=== PATIENT | male | born 1970 | race Caucasian/White ===

== ENCOUNTER 2016-08-25 13:04 | Emergency (ER) | payer SELFPAY ==
[~2016-08-25] VITALS: Ht 177.8 cm; Wt 76.0 kg
[2016-08-25 13:06] VITALS: BP 109/72; PULSE 96; RESP 16; TEMP 97.7; O2SAT 95
--- NOTE | 2016-08-25 14:01 | PD ---
HPI Chief Complaint: Skin Problem Time Seen by Provider: 13:51 Travel History International Travel<30 days: No Contact w/Intl Traveler<30days: No Traveled to known affect area: No History of Present Illness HPI The patient is a 45-year-old male who presents emergency department with complaints of right forearm pain and multiple skin infections. The patient has a history of "staph infections "on his arms and face. The patient states he has multiple areas that are slightly swollen, erythematous, with crusting over the affected area. He also complains of mid right forearm pain after box dropped on the mid aspect the right forearm. The patient states he had previous surgery to the right forearm with plates and screws, performed by an orthopedic surgeon in [place]. The patient does have a history of daily alcohol abuse, but denies any history of diabetes or HIV. Symptoms are mild to moderate, possibly exacerbated by previous staph infections and daily alcohol consumption, as well as trauma to the right midforearm, and there are no current alleviating factors. PFSH Past Medical History Bipolar Disorder: Yes Cardiovascular Problems: Yes (htn) Immunizations Current: No Schizophrenia: Yes Social History Alcohol Use: Yes (LAST NIGHT) Tobacco Use: Yes (1PPD) Substance Use: Yes Allergies-Medications (Allergen,Severity, Reaction): Coded Allergies: Seroquel (Verified Allergy, Severe, Psychosis, 08/25/16) Trazodone (Verified Allergy, Severe, Psychosis, 08/25/16) Reported Meds & Prescriptions Reported Meds & Active Scripts Active No Active Prescriptions or Reported Medications Review of Systems Except as stated in HPI: all other systems reviewed are Neg General / Constitutional: No: Fever HENT: No: Lightheadedness Cardiovascular: No: Chest Pain or Discomfort Respiratory: No: Shortness of Breath Gastrointestinal: No: Nausea, Vomiting, Abdominal Pain Musculoskeletal: Positive: Pain Skin: Positive Lumps, Positive Other (as noted in the history of present illness) Psychiatric: Positive: Substance Abuse (alcohol use) Physical Exam Narrative GENERAL: Awake, alert, 45-year-old male who appears his stated age and is in no acute respiratory distress. SKIN: Multiple impetigo type lesions to the right hand, right forearm, right aspect of the face. HEAD: Atraumatic. Normocephalic. EYES: Pupils equal and round. No scleral icterus. No injection or drainage. ENT: No nasal bleeding or discharge. Breath smells of alcohol. NECK: Trachea midline. No JVD. CARDIOVASCULAR: Regular rate and rhythm. No murmur appreciated. RESPIRATORY: No accessory muscle use. Clear to auscultation. Breath sounds equal bilaterally. GASTROINTESTINAL: Abdomen soft, non-tender, nondistended. No rebound tenderness. MUSCULOSKELETAL: No obvious deformities. No clubbing. No cyanosis. No edema. Inspection of right forearm he has mild tenderness over the mid third of the right forearm, but there is no obvious bony deformities. Positive right radial pulse. The patient is able flex and extend the right elbow as well as supinate and pronate the right forearm. He is able flex and extend the right wrist. Intrinsic hand muscles are intact. NEUROLOGICAL: Awake and alert. No obvious cranial nerve deficits. Motor grossly within normal limits. Normal speech. Nonfocal. PSYCHIATRIC: Appropriate mood and affect; insight and judgment normal. Data Data Last Documented VS Vital Signs Date Time Temp Pulse Resp B/P Pulse Ox O2 Delivery O2 Flow Rate FiO2 08/25/16 13:06 97.7 96 16 109/72 95 Room Air Orders Forearm (2vws) (08/25/16 ) [facility] Medical Decision Making Medical Screen Exam Complete: Yes Emergency Medical Condition: Yes Medical Record Reviewed: Yes Interpretation(s) Ultrasound reveals postoperative changes of the ulna. No obvious acute fracture. Differential Diagnosis Differential diagnosis includes fracture, sprain, strain, contusion, impetigo, immunocompromise secondary to alcohol abuse. Narrative Course X-ray of the right forearm was obtained. X-ray reveals postoperative changes. No obvious acute fracture. The patient will be treated for his impetigo with clindamycin. The patient is advised to follow-up with his primary physician and /or orthopedist. Medications as directed. Diagnosis Primary Impression: Impetigo Additional Impression: Right forearm pain Patient Instructions: General Instructions Additional Instructions: Medications as directed. Follow-up with your primary physician and/or orthopedist. Decrease alcohol intake. Return if symptoms worsen or progress. Med/Other Pt SpecificInfo: Prescription(s) given Scripts Ibuprofen 600 Mg [id number] Mg PO Q6H PRN (Pain/Inflammation) #20 TAB Ref 0 Prov:Jose Daniel Rodney MD 08/25/16 Clindamycin (Cleocin)150 Mg [id number] Mg PO Q6H 7 Days Ref 0 Prov:Jose Daniel Rodney MD 08/25/16 Chlorhexidine Gluconate Topical (Hibiclens Topical)4% Liq1 Applic TOPICAL ONCE #118 ML Ref 0 Prov:Jose Daniel Rodney MD 08/25/16 Disposition: 01 DISCHARGE HOME Condition: Stable Jose Daniel Rodney MD Aug 25, 2016 14:01
[2016-08-25] MEDS ORDERED: IBUP-232 PO (15:46)
[2016-08-25] MEDS ORDERED: HIBI4LIQ TOPICAL (15:46)
[2016-08-25] MEDS ORDERED: CLIN150 PO (15:46)
[2016-08-25] MEDS ORDERED: ACETAMINOPHEN/HYDROcodone 325 MG/5 MG TAB PO ONE (16:00)
[2016-08-25] MEDS ORDERED: CLINDAMYCIN 150 MG CAP PO ONE (16:00)
--- NOTE | 2016-08-26 08:29 | RADRPT ---
EXAM DATE/TIME: 08/25/2016 14:11 [facility] COMPARISON: No previous studies available for comparison. INDICATIONS : Right forearm pain. MEDICAL HISTORY : None. SURGICAL HISTORY : Prior fracture about 8 years ago. ENCOUNTER: Initial ACUITY: 1 day PAIN SCORE: 10/10 LOCATION: Medial forearm. FINDINGS: Hardware is noted within the right mid ulnar shaft status-post ORIF. There is no acute fracture or d islocation. CONCLUSION: No acute fracture or dislocation of the right forearm. The patient is status-post ORIF of right mid ulnar shaft fracture. Fabricio Azul MD on August 25, 2016 at 14:11 Board Certified Radiologist. This report was verified electronically.
== END 2016-08-25 16:14 | disposition home or self-care (01) ==
LOC: NEPA 13:04
DX: L01.00 Impetigo, unspecified (principal); M79.631 Pain in right forearm
CPT/HCPCS: 73090; 99283